=== PATIENT | female | born 1950 | race Hispanic/Latino ===

== ENCOUNTER 2023-01-25 18:54 | Emergency (ER) | payer OTHER ==
[2023-01-25] MEDS ORDERED: TRAMADOL HCL 50 MG TAB ONE (19:57)
--- NOTE | 2023-01-25 21:05 | RAD REPORT ---
EXAM DESCRIPTION: RAD - Knee Right 3 View - 01/25/2023 8:10 pm CLINICAL HISTORY: Right knee pain FINDINGS: No fracture or dislocation is seen.
--- NOTE | 2023-01-25 21:14 | EDPHYS ---
Physician Documentation [facility] Name: Yuliana Pickering Age: 72 yrs Sex: Female : 1950 Arrival Date: 01/25/2023 Time: 18:54 Bed 12 [facility] MD: Ryley Okeefe ED Physician Frandy Madrid HPI: 01/25 20:07 This 72 yrs old Female presents to ER via Wheelchair with complaints of Leg kb Injury. 20:07 The patient presents with decreased range of motion, pain, tenderness. The complaints kb affect the right knee. Context: The problem was sustained at home, resulted from an unknown cause, the patient is not able to bear weight, the patient is not able to ambulate, Problem is a result from a previous injury: No. Onset: The symptoms/episode began/occurred just prior to arrival. Modifying factors: The symptoms are alleviated by nothing. the symptoms are aggravated by movement. Associated signs and symptoms: The patient has no apparent associated signs or symptoms. Treatment prior to arrival includes: over the counter medications, NSAIDS. Severity of symptoms: At their worst the symptoms were moderate, in the emergency department the symptoms are unchanged. The patient has not experienced similar symptoms in the past. The patient has not recently seen a physician. Pt reports she was laying in bed, bent forward and felt a pop in her right knee. c/o pain. REports she is unable to move it or bear weight without pain. Historical: - Allergies: 19:33 Cipro; lg3 - PMHx: 19:33 Hypothyroidism; HTN; lg3 - PSHx: 19:33 left shoulder; lg3 - Immunization history:: Adult Immunizations up to date, Client reports receiving the 2nd dose of the Covid vaccine, Flu vaccine is up to date. - Social history:: Smoking status: Patient denies any tobacco usage or history of. Patient/guardian denies using alcohol, street drugs. ROS: 20:02 Constitutional: Negative for fever, chills, and weight loss. kb 20:02 MS/extremity: Positive for pain, of the right knee. 20:02 All other systems are negative. Exam: 20:02 Constitutional: This is a well developed, well nourished patient who is awake, alert, kb and in no acute distress. Head/Face: Normocephalic, atraumatic. ENT: Moist Mucous membranes Cardiovascular: Regular rate and rhythm with a normal S1 and S2. No gallops, murmurs, or rubs. No pulse deficits. Respiratory: Respirations even and unlabored. No increased work of breathing. Talking in full sentences Skin: Warm, dry with normal turgor. Normal color. Neuro: Awake and alert, GCS 15, oriented to person, place, time, and situation. Moves all extremities. Normal gait. 20:02 Musculoskeletal/extremity: Extremities: grossly normal except: noted in the right knee: decreased ROM, pain, tenderness, ROM: limited active range of motion due to pain, in the right knee, Circulation is intact in all extremities. Sensation intact. Weight bearing: is unable to bear weight. Vital Signs: 19:21 BP 169 / 79; Pulse 91; Resp 17 S; Temp 98.6(O); Pulse Ox 98% on R/A; Weight 66.68 kg jl7 (R); Height 5 ft. 1 in. (R); Pain 8/10; 19:21 Body Mass Index 27.78 (66.68 kg, 154.94 cm) 7 19:21 Pain Scale: Adult jl7 MDM: 19:16 Patient medically screened. kb 20:05 Differential diagnosis: dislocation, closed fracture, strain, sprain, bakers cyst. Data kb reviewed: vital signs, nurses notes. Counseling: I had a detailed discussion with the patient and/or guardian regarding: the historical points, exam findings, and any diagnostic results supporting the discharge/admit diagnosis, radiology results, the need for outpatient follow up, a orthopedic surgeon, to return to the emergency department if symptoms worsen or persist or if there are any questions or concerns that arise at home. 01/25 19:20 Order name: Knee Right 3 View XRAY; Complete Time: 21:05 jl7 01/25 21:13 Order name: Ralph Wrap Administered Medications: 19:49 Drug: traMADol PO 50 mg Route: PO; lg3 Disposition Summary: 01/25/23 21:13 Discharge Ordered Location: Home Condition: Stable Diagnosis - Pain in right knee kb Followup: kb - With: Emergency Department - When: As needed - Reason: Worsening of condition Followup: kb - With: Ryley Okeefe MD - When: 2 - 3 days - Reason: Recheck today's complaints, Continuance of care, Re-evaluation by your physician Discharge Instructions: - Discharge Summary Sheet kb - Acute Knee Pain, Adult, [place] kb Forms: - Medication Reconciliation Form kb - Thank You Letter kb - Antibiotic Education kb - Prescription Opioid Use kb Signatures: Dispatcher [employer] Pearl Henning FNP-C FNP-Leonie Phillips RN RN jl7 Shannan Chaudhary RN RN lg3
--- NOTE | 2023-01-25 21:14 | ER ---
Nurse's Notes [facility] Name: Yuliana Pickering Age: 72 yrs Sex: Female : 1950 Arrival Date: 01/25/2023 Time: 18:54 Bed 12 [facility] MD: Ryley Okeefe Diagnosis: Pain in right knee Presentation: 01/25 19:21 Chief complaint: Patient states: leaned forward on the bed and something popped in my jl7 right leg and now i cant move it. Coronavirus screen: Client denies travel out of the [place] in the last 14 days. At this time, the client does not indicate any symptoms associated with coronavirus-19. Ebola Screen: No symptoms or risks identified at this time. Initial Sepsis Screen: Does the patient meet any 2 criteria? No. Patient's initial sepsis screen is negative. Does the patient have a suspected source of infection? No. Patient's initial sepsis screen is negative. Risk Assessment: Do you want to hurt yourself or someone else? Patient reports no desire to harm self or others. Onset of symptoms was January 25, 2023. 19:21 Method Of Arrival: Wheelchair [facility] 19:21 Acuity: SOLITARIO 4 jl7 Triage Assessment: 19:33 General: Appears in no apparent distress. comfortable, Behavior is calm, cooperative. lg3 Pain: Complains of pain in right leg. Neuro: No deficits noted. Spaulding Agitation-Sedation Scale (RASS): 0 - Alert and Calm Level of Consciousness is awake, alert, obeys commands, Oriented to person, place, time, situation. Cardiovascular: No deficits noted. Respiratory: No deficits noted. Airway is patent Respiratory effort is even, unlabored, Respiratory pattern is regular, symmetrical. Musculoskeletal: Circulation, motion, and sensation intact. Range of motion: intact in all extremities, Reports pain in right leg. Historical: - Allergies: 19:33 Cipro; lg3 - PMHx: 19:33 Hypothyroidism; HTN; lg3 - PSHx: 19:33 left shoulder; lg3 - Immunization history:: Adult Immunizations up to date, Client reports receiving the 2nd dose of the Covid vaccine, Flu vaccine is up to date. - Social history:: Smoking status: Patient denies any tobacco usage or history of. Patient/guardian denies using alcohol, street drugs. Screenin:00 [facility] ED Fall Risk Assessment (Adult) Score/Fall Risk Level 0 - 2 = Low Risk. Abuse eh3 screen: Denies threats or abuse. Denies injuries from another. Nutritional screening: No deficits noted. Tuberculosis screening: No symptoms or risk factors identified. Assessment: 21:00 General: Appears in no apparent distress. uncomfortable, Behavior is calm, cooperative, eh3 appropriate for age. Pain: Complains of pain in right knee. Neuro: Level of Consciousness is awake, alert, obeys commands, Oriented to person, place, time, situation. Cardiovascular: Capillary refill < 3 seconds Patient's skin is warm and dry. Respiratory: Airway is patent Respiratory effort is even, unlabored, Respiratory pattern is regular, symmetrical. GI: Abdomen is round non-distended. Musculoskeletal: Circulation, motion, and sensation intact. 22:00 Reassessment: Patient appears in no apparent distress at this time. Patient is alert, eh3 oriented x 3, equal unlabored respirations, skin warm/dry/pink. Vital Signs: 19:21 BP 169 / 79; Pulse 91; Resp 17 S; Temp 98.6(O); Pulse Ox 98% on R/A; Weight 66.68 kg jl7 (R); Height 5 ft. 1 in. (R); Pain 8/10; 19:21 Body Mass Index 27.78 (66.68 kg, 154.94 cm) jl7 19:21 Pain Scale: Adult jl7 ED Course: 18:55 Patient arrived in ED. rg4 18:55 Ryley Okeefe MD is Private Physician. rg4 19:16 Pearl Earl FNP-C is [facility]. kb 19:16 Frandy Madrid MD is Attending Physician. kb 19:24 Triage completed. jl7 19:33 Arm band placed on right wrist. lg3 20:12 Knee Right 3 View XRAY In Process Unspecified. EDMS 21:00 Patient has correct armband on for positive identification. Bed in low position. Call eh3 light in reach. 21:13 Ryley Okeefe MD is Referral Physician. kb 21:16 Vero Arnett, RILEY is Primary Nurse. eh3 22:00 Ralph wrap to right knee. eh3 22:05 No provider procedures requiring assistance completed. Patient did not have IV access eh3 during this emergency room visit. Administered Medications: 19:49 Drug: traMADol PO 50 mg Route: PO; lg3 Medication: 22:05 VIS not applicable for this client. eh3 Outcome: 21:13 Discharge ordered by MD. webber 22:05 Discharged to home via wheelchair, with family. eh3 22:05 Condition: stable 22:05 Discharge instructions given to patient, family, Instructed on discharge instructions, follow up and referral plans. Demonstrated understanding of instructions, follow-up care, medications. 22:11 Patient left the ED. eh3 Signatures: Dispatcher [employer] EDMS Pearl Earl, GRINDER SETUP OPERATOR-C GRINDER SETUP OPERATOR-Amaya Madrigal rg4 Leonie Garcia RN RN jl7 Shannan Chaudhary RN RN lg3 Vero Arnett, RN RN eh3
[2023-01-26 01:31] VITALS: BP 169/79; TEMP 98.6; O2SAT 98
== END 2023-01-25 22:11 | disposition home or self-care (01) ==
LOC: ER 18:54
DX: M25.561 Pain in right knee (principal); I10 Essential (primary) hypertension; Z88.1 Allergy status to other antibiotic agents
CPT/HCPCS: 99284